=== PATIENT | female | born 1960 | race Caucasian/White ===

== ENCOUNTER 2016-04-21 07:56 | Emergency (ER) | payer MEDICARE, BC ==
[2016-04-21] MEDS ORDERED: SODIUM CHLORIDE 0.9% 1,000 ML IV STA (08:03)
[2016-04-21] MEDS ORDERED: FAMOTIDINE 20 MG/2 ML VIAL IV STA (08:03)
[2016-04-21] MEDS ORDERED: DICYCLOMINE 10 MG/ML 2 ML AMP IM STA (08:03)
[2016-04-21] MEDS ORDERED: ONDANSETRON 4 MG/2 ML VIAL IVP STA (08:03)
[2016-04-21 08:04] VITALS: PULSE 95
--- NOTE | 2016-04-21 08:05 | ED ---
General Adult HPI - General Chief complaint: Nausea/Vomiting/Diarrhea Stated complaint: Vomiting Time Seen by Provider: 04/21/16 07:57 Source: patient, EMS, RN notes reviewed Mode of arrival: EMS Limitations: no limitations - History of Present Illness Initial comments: Patient is a pleasant 5-year-old female presenting to the emergency department complaining of nausea and vomiting and diarrhea. Onset of symptoms was last night. Patient had 3 large episodes of emesis. Patient remains nauseated. Patient states her mouth feels dry. Patient states she feels weak and achy all over. Patient has also had a couple episodes of diarrhea. No abdominal pain. No fevers. Patient has been battling both pneumonia and bronchitis on and off over the past month however feels that is clearing up. - Related Data Home Medications Medication Instructions Recorded Confirmed Albuterol Inhaler [Ventolin Hfa 2 puff INHALATION RT-QID PRN 04/21/16 04/21/16 Inhaler] Albuterol Nebulized [Ventolin 2.5 mg INHALATION RT-BID PRN 04/21/16 04/21/16 Nebulized] Amitriptyline HCl [Elavil] 20 mg PO HS 04/21/16 04/21/16 DULoxetine HCL [Cymbalta] 30 mg PO BID 04/21/16 04/21/16 Doxycycline Hyclate [Vibramycin] 100 mg PO BID 04/21/16 04/21/16 Gabapentin [Neurontin] 800 mg PO 5XD 04/21/16 04/21/16 Levothyroxine Sodium [Synthroid] 100 mcg PO DAILY 04/21/16 04/21/16 Loperamide [Imodium] 2 - 4 mg PO TID PRN 04/21/16 04/21/16 Pravastatin Sodium [Pravachol] 20 mg PO HS 04/21/16 04/21/16 Triamterene-Hctz 37.5-25Mg 2 tab PO DAILY 04/21/16 04/21/16 [Maxzide 37.5-25] fentaNYL 100MCG/HR PATCH 1 patch TRANSDERM Q48H 04/21/16 04/21/16 [Duragesic 100MCG/HR] methylPREDNISolone [Medrol Dose See Taper PO DIRECTED 04/21/16 04/21/16 Pack] oxyCODONE-APAP 10-325MG [Percocet 1 tab PO Q4-6H 04/21/16 04/21/16 10-325 mg] Previous Rx's Medication Instructions Recorded Ondansetron Odt [Zofran Odt] 4 mg PO Q8HR PRN #10 tab 04/21/16 Allergies Allergy/AdvReac Type Severity Reaction Status Date / Time Sulfa (Sulfonamide Allergy Unknown Verified 04/21/16 08:08 Antibiotics) Review of Systems ROS Statement: Those systems with pertinent positive or pertinent negative responses have been documented in the HPI. ROS Other: All systems not noted in ROS Statement are negative. Constitutional: Denies: fever, chills Eyes: Denies: eye pain ENT: Denies: ear pain Respiratory: Reports: cough Cardiovascular: Denies: chest pain Endocrine: Reports: fatigue Gastrointestinal: Denies: abdominal pain Genitourinary: Denies: dysuria Musculoskeletal: Denies: back pain Skin: Denies: rash Neurological: Reports: weakness (Generalized) Past Medical History Past Medical History: Hyperlipidemia, Thyroid Disorder Additional Past Medical History / Comment(s): chronic pelvic pain History of Any Multi-Drug Resistant Organisms: None Reported Past Surgical History: Appendectomy, Hernia Repair, Hysterectomy, Tonsillectomy Additional Past Surgical History / Comment(s): pelvic surgery 2009 Past Psychological History: Depression Smoking Status: Current every day smoker Past Alcohol Use History: None Reported Past Drug Use History: None Reported General Exam Limitations: no limitations General appearance: alert, in no apparent distress Head exam: Present: atraumatic Eye exam: Present: normal appearance, PERRL ENT exam: Present: mucous membranes dry Neck exam: Present: normal inspection Respiratory exam: Present: normal lung sounds bilaterally Cardiovascular Exam: Present: regular rate, normal rhythm GI/Abdominal exam: Present: soft, normal bowel sounds. Absent: distended, tenderness, guarding, rebound, rigid, pulsatile mass Extremities exam: Present: normal inspection. Absent: pedal edema, calf tenderness Neurological exam: Present: alert Psychiatric exam: Present: normal affect, normal mood Skin exam: Absent: rash Course Vital Signs 04/21/16 07:59 Temperature 98.8 F Pulse Rate 95 Respiratory 17 Rate Blood Pressure 128/72 O2 Sat by Pulse 93 L Oximetry Medical Decision Making - Medical Decision Making Patient reexamined and resting comfortably in bed. Patient is feeling better. Patient updated on results and need for follow-up. - Lab Data Result diagrams: 04/21/16 08:05 04/21/16 08:05 Lab Results 04/21/16 04/21/16 Range/Units 08:05 08:05 WBC 10.8 H (3.8-10.6) k/uL RBC 5.10 (3.80-5.40) m/uL Hgb 15.6 (11.4-16.0) gm/dL Hct 48.3 H (34.0-46.0) % MCV 94.5 (80.0-100.0) fL MCH 30.6 (25.0-35.0) pg MCHC 32.3 (31.0-37.0) g/dL RDW 14.2 (11.5-15.5) % Plt Count 251 (150-450) k/uL Neutrophils % 89 % Lymphocytes % 7 % Monocytes % 3 % Eosinophils % 1 % Basophils % 0 % Neutrophils # 9.6 H (1.3-7.7) k/uL Lymphocytes # 0.8 L (1.0-4.8) k/uL Monocytes # 0.3 (0-1.0) k/uL Eosinophils # 0.1 (0-0.7) k/uL Basophils # 0.0 (0-0.2) k/uL Sodium 138 (137-145) mmol/L Potassium 3.3 L (3.5-5.1) mmol/L Chloride 98 (98-107) mmol/L Carbon Dioxide 28 (22-30) mmol/L Anion Gap 12 mmol/L BUN 20 H (7-17) mg/dL Creatinine 0.55 (0.52-1.04) mg/dL Est GFR (MDRD) Af Amer >60 (>60 ml/min/1.73 sqM) Est GFR (MDRD) Non-Af >60 (>60 ml/min/1.73 sqM) Glucose 124 H (74-99) mg/dL Calcium 8.4 (8.4-10.2) mg/dL Total Bilirubin 0.5 (0.2-1.3) mg/dL AST 25 (14-36) U/L ALT 40 (9-52) U/L Alkaline Phosphatase 83 (38-126) U/L Total Protein 6.4 (6.3-8.2) g/dL Albumin 3.9 (3.5-5.0) g/dL Amylase <30 L (30-110) U/L Lipase 37 (23-300) U/L - Radiology Data Radiology results: image reviewed (Chest x-ray shows no acute process) Disposition Clinical Impression: Vomiting Disposition: HOME SELF-CARE Condition: Stable Instructions: Acute Nausea and Vomiting (ED) Additional Instructions: Please follow-up with primary care physician in the next day or 2 for recheck. Return for fevers, abdominal pain, not tolerating fluids, worsening symptoms or other concerns. Prescriptions: Ondansetron Odt [Zofran Odt] 4 mg PO Q8HR PRN #10 tab PRN Reason: Nausea Referrals: Giovani Fay MD [Primary Care Provider] - 1-2 days
[2016-04-21 08:20] LABS: Basophils % (A) 0 %; CH 30.9; CHCM 32.9; Eosinophils # (A) 0.1 k/uL (0-0.7); Eosinophils % (A) 1 %; HCT 48.3 % (34.0-46.0); HDW 2.19; HGB 15.6 gm/dL (11.4-16.0); Luc # (Auto) 0.06; Luc % (Auto) 1; Lymphocytes # (A) 0.8 k/uL (1.0-4.8); Lymphocytes % (A) 7 %; MCH 30.6 pg (25.0-35.0); MCHC 32.3 g/dL (31.0-37.0); MCV 94.5 fL (80.0-100.0); Mean Platelet Volume 6.7; Monocytes # (A) 0.3 k/uL (0-1.0); Monocytes % (A) 3 %; Neutrophils # (A) 9.6 k/uL (1.3-7.7); Neutrophils % (A) 89 %; RDW 14.2 % (11.5-15.5); WBC 10.8 k/uL (3.8-10.6); WBC (Perox) 11.18
[2016-04-21 08:25] LABS: ALT 40 U/L (9-52); AST 25 U/L (14-36); Alkaline Phosphatase 83 U/L (38-126); Amylase <30 U/L (30-110); Anion Gap 12 mmol/L; Blood Urea Nitrogen 20 mg/dL (7-17); Calcium 8.4 mg/dL (8.4-10.2); Carbon Dioxide 28 mmol/L (22-30); Chloride 98 mmol/L (98-107); Glucose 124 mg/dL (74-99); Non-African American GFR(MDRD) >60 (>60 ml/min/1.73 sqM); Potassium 3.3 mmol/L (3.5-5.1); Sodium 138 mmol/L (137-145); Total Bilirubin 0.5 mg/dL (0.2-1.3); Total Protein 6.4 g/dL (6.3-8.2)
--- NOTE | 2016-04-21 08:35 | XR ---
EXAMINATION TYPE: XR chest 2V DATE OF EXAM: 04/21/2016 8:31 AM HISTORY: Nausea and vomiting. REFERENCE: NONE. FINDINGS: There is apparent elevation of the right hemidiaphragm. The lungs are clear. Pleural space are clear. The heart is not enlarged. IMPRESSION: I DO NOT SEE EVIDENCE OF ACTIVE INTRATHORACIC DISEASE.
[2016-04-21] MEDS ORDERED: ACETAMINOPHEN IV (For NPO) 1,000 MG in SALINE 1 100ML.BAG IVPB STA (08:36)
[2016-04-21] MEDS ORDERED: SODIUM CHLORIDE 0.9% 500 ML IV STA (09:12)
[2016-04-21] MEDS ORDERED: POTASSIUM CHLORIDE ER 20 MEQ TAB.ER PO STA (09:12)
[2016-04-21 10:44] VITALS: BP 146/69; RESP 18; TEMP 97.8
== END 2016-04-21 10:31 | disposition home or self-care (01) ==
LOC: EC 07:56
DX: R11.2 Nausea with vomiting, unspecified (principal); E78.5 Hyperlipidemia, unspecified; E07.9 Disorder of thyroid, unspecified; F32.9 Major depressive disorder, single episode, unspecified; F17.200 Nicotine dependence, unspecified, uncomplicated; Z79.891 Long term (current) use of opiate analgesic; Z79.899 Other long term (current) drug therapy; Z88.2 Allergy status to sulfonamides
CPT/HCPCS: 36415; 80053; 82150; 83690; 85025; 71020; 99284; 96374; 96375 ×2; 96361 ×2; 96372; J0500; J2405; J0131

== ENCOUNTER 2016-08-18 17:01 | Emergency (ER) | payer MEDICARE, BC ==
[2016-08-18 17:11] VITALS: BP 120/77; PULSE 92; RESP 18; TEMP 97.6
--- NOTE | 2016-08-18 17:27 | ED ---
Upper Extremity HPI - General Chief Complaint: Extremity Injury, Upper Stated Complaint: Fall/Wrist Pain Time Seen by Provider: 08/18/16 17:11 Source: patient, family, RN notes reviewed, old records reviewed Mode of arrival: ambulatory Limitations: no limitations - History of Present Illness Initial Comments: This is a 55-year-old female with chief complaint of right hand and wrist pain. Patient reports that at 6:00 this morning she was in her bathroom stepped backwards on a piece of clothing and fell. Patient reports she landed on her right wrist. She reports pain with flexion. She reports also pain with full extension of her fingers. She states that she is right-handed. Denies any peripheral paresthesias. Denies any previous fractures or accidents causing fractures of the right hand. Patient states that she does have some range of motion of hand and fingers, but the pain is worse with full extension. - Related Data Home Medications Medication Instructions Recorded Confirmed Albuterol Inhaler [Ventolin Hfa 2 puff INHALATION RT-QID PRN 04/21/16 04/21/16 Inhaler] Albuterol Nebulized [Ventolin 2.5 mg INHALATION RT-BID PRN 04/21/16 04/21/16 Nebulized] Amitriptyline HCl [Elavil] 20 mg PO HS 04/21/16 04/21/16 DULoxetine HCL [Cymbalta] 30 mg PO BID 04/21/16 04/21/16 Doxycycline Hyclate [Vibramycin] 100 mg PO BID 04/21/16 04/21/16 Gabapentin [Neurontin] 800 mg PO 5XD 04/21/16 04/21/16 Levothyroxine Sodium [Synthroid] 100 mcg PO DAILY 04/21/16 04/21/16 Loperamide [Imodium] 2 - 4 mg PO TID PRN 04/21/16 04/21/16 Pravastatin Sodium [Pravachol] 20 mg PO HS 04/21/16 04/21/16 Triamterene-Hctz 37.5-25Mg 2 tab PO DAILY 04/21/16 04/21/16 [Maxzide 37.5-25] fentaNYL 100MCG/HR PATCH 1 patch TRANSDERM Q48H 04/21/16 04/21/16 [Duragesic 100MCG/HR] methylPREDNISolone [Medrol Dose See Taper PO DIRECTED 04/21/16 04/21/16 Pack] oxyCODONE-APAP 10-325MG [Percocet 1 tab PO Q4-6H 04/21/16 04/21/16 10-325 mg] Previous Rx's Medication Instructions Recorded Ondansetron Odt [Zofran Odt] 4 mg PO Q8HR PRN #10 tab 04/21/16 Ibuprofen [Motrin] 600 mg PO Q6HR PRN #20 tab 08/18/16 Allergies Allergy/AdvReac Type Severity Reaction Status Date / Time Sulfa (Sulfonamide Allergy Unknown Verified 08/18/16 17:07 Antibiotics) Review of Systems ROS Statement: Those systems with pertinent positive or pertinent negative responses have been documented in the HPI. ROS Other: All systems not noted in ROS Statement are negative. Past Medical History Past Medical History: Hyperlipidemia, Thyroid Disorder Additional Past Medical History / Comment(s): chronic pelvic pain History of Any Multi-Drug Resistant Organisms: None Reported Past Surgical History: Appendectomy, Hernia Repair, Hysterectomy, Tonsillectomy Additional Past Surgical History / Comment(s): pelvic surgery 2009 Past Psychological History: Depression Smoking Status: Current every day smoker Past Alcohol Use History: None Reported Past Drug Use History: None Reported General Exam Limitations: no limitations General appearance: alert, in no apparent distress Head exam: Present: atraumatic, normocephalic, normal inspection Eye exam: Present: normal appearance, PERRL, EOMI. Absent: scleral icterus, conjunctival injection, periorbital swelling ENT exam: Present: normal exam, mucous membranes moist Neck exam: Present: normal inspection. Absent: tenderness, meningismus, lymphadenopathy Respiratory exam: Present: normal lung sounds bilaterally. Absent: respiratory distress, wheezes, rales, rhonchi, stridor Cardiovascular Exam: Present: regular rate, normal rhythm, normal heart sounds. Absent: systolic murmur, diastolic murmur, rubs, gallop, clicks GI/Abdominal exam: Present: soft, normal bowel sounds. Absent: distended, tenderness, guarding, rebound, rigid Extremities exam: Present: normal inspection, full ROM, normal capillary refill. Absent: tenderness, pedal edema, joint swelling, calf tenderness Right Shoulder Exam: Present: normal inspection, full ROM Upper Arm exam: Present: normal inspection, full ROM Elbow exam: Present: normal inspection, full ROM Forearm Wrist exam: Present: normal inspection. Absent: full ROM (Patient reports pain with full extension of the wrist.) Hand Wrist exam: Present: normal inspection, full ROM Neuro motor exam: Present: wrist extension intact, thumb opposition intact, thumb IP flexion intact, thumb adduction intact, fingers 2-5 abduction intact Vascular: Present: normal capillary refill Back exam: Present: normal inspection Neurological exam: Present: alert, oriented X3, CN II-XII intact Psychiatric exam: Present: normal affect, normal mood Skin exam: Present: warm, dry, intact, normal color. Absent: rash Course Vital Signs 08/18/16 17:07 Temperature 97.6 F Pulse Rate 92 Respiratory 18 Rate Blood Pressure 120/77 O2 Sat by Pulse 96 Oximetry Procedures - Orthopedic Splinting/Casting Injury #1 Side: right Upper Extremity Injury Location: wrist Upper Extremity Immobilizer: volar splint Medical Decision Making - Medical Decision Making This is a 55-year-old female with chief complaint of right hand and wrist pain. Patient reports that at 6:00 this morning she was in her bathroom stepped backwards on a piece of clothing and fell. Patient reports she landed on her right wrist. She reports pain with flexion. She reports also pain with full extension of her fingers. She states that she is right-handed. Denies any peripheral paresthesias. Xray negative for fracture. Patient placed in volar splint for support of the wrist.. Patient given Rx for antiinflammatory medication. REferral to orthopedic. Understands treatment plan and will comply. - Radiology Data Radiology results: report reviewed X-rays are reviewed and negative for any acute process. Disposition Clinical Impression: Wrist sprain Disposition: HOME SELF-CARE Condition: Good Instructions: Wrist Sprain (ED) Additional Instructions: Patient is to rest, ice, elevate extremity. Take a temperature medicine such as Motrin. Follow-up with your primary care provider within the next 2-3 days if symptoms continue persist. Patient also welcome to follow-up with orthopedic physician. Return to the emergency department if any alarming signs or symptoms occur. Prescriptions: Ibuprofen [Motrin] 600 mg PO Q6HR PRN #20 tab PRN Reason: Pain Referrals: Giovani Fay MD [Primary Care Provider] - 1-2 days Dixon Sanchez MD [STAFF PHYSICIAN] - 1-2 days Time of Disposition: 17:56
--- NOTE | 2016-08-18 17:45 | XR ---
EXAMINATION TYPE: XR hand complete RT, XR wrist complete RT DATE OF EXAM: 08/18/2016 CLINICAL HISTORY: pain TECHNIQUE: Frontal, lateral and oblique images of the right hand are obtained. COMPARISON: None. FINDINGS: There is no acute fracture/dislocation evident. The joint spaces appear within normal limi ts. The overlying soft tissue appears unremarkable. IMPRESSION: There is no acute fracture or dislocation ICD 10 NO FRACTURE, INITIAL EVALUATION EXAMINATION TYPE: XR hand complete RT, XR wrist complete RT DATE OF EXAM: 08/18/2016 CLINICAL HISTORY: pain TECHNIQUE: Frontal, lateral and oblique images of the right wrist are obtained. COMPARISON: None. FINDINGS: There is no acute fracture/dislocation evident. The joint spaces appear within normal limits. The o verlying soft tissue appears unremarkable. IMPRESSION: There is no acute fracture or dislocation seen. ICD 10 NO FRACTURE, INITIAL EVALUATION
== END 2016-08-18 18:12 | disposition home or self-care (01) ==
LOC: EC 17:01
DX: S63.501A Unspecified sprain of right wrist, initial encounter (principal); E78.5 Hyperlipidemia, unspecified; E07.9 Disorder of thyroid, unspecified; F32.9 Major depressive disorder, single episode, unspecified; F17.200 Nicotine dependence, unspecified, uncomplicated; Z79.52 Long term (current) use of systemic steroids; Z79.899 Other long term (current) drug therapy; Z88.2 Allergy status to sulfonamides; W01.0XXA Fall on same level from slipping, tripping and stumbling without subsequent striking against object, initial encounter; Y92.002 Bathroom of unspecified non-institutional (private) residence as the place of occurrence of the external cause
CPT/HCPCS: 29125; 99284

== ENCOUNTER 2017-09-05 09:02 | Day surgery (SDC) | payer MEDICARE, BC ==
[2017-09-02 09:36] VITALS: BMI 29.2
[2017-09-05 09:25] VITALS: TEMP 97
[2017-09-05] MEDS: LACTATED RINGERS 1,000 ML IV SCH ×2 (09:34→09:59)
[2017-09-05] MEDS ORDERED: LIDOCAINE 1% 20 ML VIAL (10MG/ML) FOR IV START INTRADERMA ONE (09:34)
[2017-09-05] MEDS ORDERED: PROPOFOL 10 MG/ML 20 ML VIAL IV ONE (10:05)
[2017-09-05 10:50] VITALS: BP 1119/72; PULSE 70; RESP 18
--- NOTE | 2017-09-05 11:12 | P.PCN ---
Date of Procedure: 09/05/17 Procedure(s) Performed: Procedure: Colonoscopy and biopsy. Preoperative diagnosis: Change in bowel habits. Postoperative diagnosis: 1. Normal colon and terminal ileum. 2. Biopsies obtained from the terminal ileum and right colon. Preparation: HalfLytely prep. Sedation: Was provided by anesthesia. Brief clinical history: The patient is a 57-year-old female who is scheduled for this evaluation because of change in bowel habits with more recent onset of diarrhea with multiple bowel movements every morning. She had had a prior colonoscopy in 2009. Procedure: With the patient on her left lateral decubitus position and after informed consent and adequate sedation, the perianal area was inspected and it did not show any fissures or fistulas. There were no masses felt on digital rectal examination. The Olympus CFQ 160L video colonoscope was then inserted in the rectum in the usual fashion and advanced to the cecum. I intubated the ileocecal valve and examined the terminal ileum. Terminal ileum and colon appeared healthy with no edema, erythema, friability, ulceration, exudation or spontaneous bleeding. No obvious diverticular disease or other pathology. I obtained biopsies from the terminal ileum and right colon. I retroflexed the endoscope in the rectum before the endoscope was withdrawn. The patient tolerated the procedure well. Plan: The patient was reassured. Will await biopsy results. She will follow- up with you as planned and further plans can be made based on her course. I recommended repeat colonoscopy in 10 years.
== END 2017-09-05 11:23 | disposition home or self-care (01) ==
LOC: ORWHC2ENDO 09:02
DX: R19.4 Change in bowel habit (principal); R19.7 Diarrhea, unspecified; R10.9 Unspecified abdominal pain; R10.2 Pelvic and perineal pain; G89.29 Other chronic pain; E78.5 Hyperlipidemia, unspecified; I10 Essential (primary) hypertension; E07.9 Disorder of thyroid, unspecified; F39 Unspecified mood [affective] disorder; Z72.0 Tobacco use; Z79.890 Hormone replacement therapy; Z79.891 Long term (current) use of opiate analgesic; Z79.899 Other long term (current) drug therapy; Z88.2 Allergy status to sulfonamides
CPT/HCPCS: 88305; 84132; 45380; J2704

== ENCOUNTER → 2017-12-07 | Outpatient (CLI) | payer MEDICARE, BC ==
--- NOTE | 2017-12-08 15:13 | MM ---
Reason for exam: screening (asymptomatic). Last mammogram was performed 5 years and 1 month ago. History: Patient is postmenopausal. Physical Findings: A clinical breast exam by your physician is recommended on an annual basis and results should be correlated with mammographic findings. MG 3D Screening Mammo W/Cad Bilateral CC and MLO view(s) were taken. Prior study comparison: November 16, 2012, bilateral digital screening mammo w/CAD. September 17, 2010, bilateral digital screening mammo w/CAD. There are scattered fibroglandular densities. There is no discrete abnormality. No significant changes when compared with prior studies. ASSESSMENT: Negative, BI-RAD 1 RECOMMENDATION: Routine screening mammogram of both breasts in 1 year.
== END | disposition home or self-care (01) ==
LOC: RADMAMWWP 13:08
PROVIDERS: ATTEND Family Medicine
DX: Z12.31 Encounter for screening mammogram for malignant neoplasm of breast (principal)
CPT/HCPCS: 77063; 77067

== ENCOUNTER → 2018-02-13 | Outpatient (CLI) | payer MEDICARE, BC ==
--- NOTE | 2018-02-14 00:14 | CT ---
EXAMINATION TYPE: CT abdomen pelvis wo/w con DATE OF EXAM: 02/13/2018 COMPARISON: NONE HISTORY: 57-year-old female unspecified abdominal pain. Hx IBS, pelvic pain TECHNIQUE: Contiguous axial scanning of the abdomen and pelvis before and following administration of 100 ml Isovue 300 IV contrast. Delayed images through the kidneys and coronal/sagittal reconstructi ons performed. CT DLP: 1957 mGycm Automated exposure control for dose reduction was used. FINDINGS: Heart normal size without pericardial effusion. Lung bases clear without pleural effusion. Small hiatal hernia. Liver mildly enlarged at 18.7 cm. Small amount of focal fat along the anterior falciform ligament. Ot herwise, no focal liver lesion. Portal venous system is patent. No biliary ductal dilatation. Gallbladder, adrenal glands, left kidney, spleen, and pancreas show no gross abnormality. 2.1 cm benign cysts posterior upper pole right kidney and too small to characterize round 8 mm hypode nsity lower pole right kidney also likely a cyst. No dilated small bowel, free fluid, or free air. Tiny fatty umbilical hernia. Scattered nonenlarged mid abdominal mesenteric lymph nodes, nonspecific. Suggestion of some focal soft tissue fullness in the region of the cecum just below the level of the ileocecal valve, refer to axial image 70 on the noncontrast and postcontrast series. There is moderat e stool burden without pericolonic inflammatory change. Bladder is urine distended. Uterus surgically absent. Neither ovary is clearly seen. No abnormal flui d collection in the pelvis or pelvic lymphadenopathy. There is a posterior left-sided generator device with lead extending into the left pelvic floor. Bones: Degenerative changes at the hips, moderate on the right. Additional degenerative changes throu ghout the lumbar spine with moderate to advanced degenerative disc disease and hypertrophic facet art hropathy. IMPRESSION: 1. FOCAL SOFT TISSUE FULLNESS IN THE REGION OF THE CECUM JUST BELOW THE ILEOCECAL VALVE, AXIAL IMAGE 70. FINDINGS MAY REPRESENT CLUMPED UP STOOL. DIRECT VISUALIZATION TO EXCLUDE UNDERLYING NEOPLASM IF THE PATIENT IS OVER DUE FOR SCREENING COLONOSCOPY. 2. MILD HEPATOMEGALY (18.7 CM), SMALL HIATAL HERNIA, AN TINY FATTY UMBILICAL HERNIA. 3. MODERATE STOOL BURDEN. 4. LEFT POSTERIOR GENERATOR DEVICE. SINGLE STIMULATOR LEAD TRAVERSES THE LEFT PELVIC FLOOR MUSCULATUR E AND TERMINATES NEAR THE LEFT INTERNAL ILIAC CHAIN.
== END | disposition home or self-care (01) ==
LOC: RADCTMAIN 14:20
PROVIDERS: ATTEND Family Medicine
DX: K42.9 Umbilical hernia without obstruction or gangrene (principal); K44.9 Diaphragmatic hernia without obstruction or gangrene; R16.0 Hepatomegaly, not elsewhere classified; M79.89 Other specified soft tissue disorders
CPT/HCPCS: 74178; Q9967

== ENCOUNTER → 2018-11-24 | Outpatient (CLI) | payer MEDICARE, BC ==
--- NOTE | 2018-11-24 15:44 | US ---
EXAMINATION TYPE: US pelvic complete DATE OF EXAM: 11/24/2018 COMPARISON: CT 2018 CLINICAL HISTORY: N81.10 Cystocele, unspecified. Patient states total hysterectomy. Difficulty urinat ing. TECHNIQUE: Transabdominal (TA). Transabdominal sonographic images of the pelvis were acquired. Tra nsvaginal sonographic images were medically necessary to better assess the following anatomy: Date of LMP: "years ago" EXAM MEASUREMENTS: Uterus: Surgically absent cm Endometrial Stripe: Surgically absent cm Right Ovary: Surgically absent cm Left Ovary: Surgically absent cm 1. Uterus: Surgically absent 2. Endometrium: Surgically absent 3. Right Ovary: Surgically absent 4. Left Ovary: Surgically absent Spectral, color and waveform doppler imaging shows good arterial and venous flow within the ovaries ; there is no evidence for ovarian torsion. 5. Bilateral Adnexa: wnl 6. Posterior cul-de-sac: wnl normal post void bladder volume =21.3 ml IMPRESSION: Uterus and ovaries are surgically absent. Post void residual is within normal limits with in the urinary bladder. No sonographic evidence of neurogenic bladder.
== END | disposition home or self-care (01) ==
LOC: RADUSWWP 14:56
PROVIDERS: ATTEND Family Medicine
DX: N81.10 Cystocele, unspecified (principal); Z90.710 Acquired absence of both cervix and uterus; Z90.722 Acquired absence of ovaries, bilateral
CPT/HCPCS: 76856

== ENCOUNTER → 2021-07-31 | Outpatient (CLI) | payer MEDICARE, BC ==
--- NOTE | 2021-08-04 12:49 | MM ---
Reason for Exam: Screening (asymptomatic). Last mammogram was performed 3 year(s) and 8 month(s) ago. Patient History: Menarche at age 13. First Full-Term at age 23. Left ovary removed at age 42. Right ovary removed at age 42. Hysterectomy at age 42. Postmenopausal. Film Views: Bilateral CC views were taken. Bilateral MLO views were taken. Prior Study Comparison: 12/07/2017 Bilateral Screening Mammogram, [facility]. Tissue Density: There are scattered fibroglandular densities. Findings: Analyzed By CAD. No significant changes when compared with prior studies. Chronic nodularity in the left breast. Overall Assessment: Benign, BI-RAD 2 Management: Screening Mammogram of both breasts in 1 year.
== END | disposition home or self-care (01) ==
LOC: RADMAMWWP 11:13
PROVIDERS: ATTEND Family Medicine
DX: Z12.31 Encounter for screening mammogram for malignant neoplasm of breast (principal); Z78.0 Asymptomatic menopausal state; Z90.721 Acquired absence of ovaries, unilateral
CPT/HCPCS: 77067

== ENCOUNTER 2021-11-02 16:35 | Inpatient (IN) | payer MEDICARE, BC ==
--- NOTE | 2021-11-02 16:55 | ED ---
General Adult HPI - General Chief complaint: Psychiatric Symptoms Stated complaint: Overdose Time Seen by Provider: 11/02/21 16:41 Source: patient, police, EMS, RN notes reviewed Mode of arrival: EMS Limitations: altered mental status - History of Present Illness Initial comments: Patient is a 61-year-old female presenting to the emergency department with overdose. Patient provides very little history. Patient admits to taking too much of her prescription medication. Patient also admits to having depression and thoughts of self-harm. Patient admits to drinking alcohol. Unclear patient has history of similar symptoms previously. Family does arrive and is unclear which medications patient took. Patient reportedly had an empty bottle of Cymb berna near her - Related Data Home Medications Medication Instructions Recorded Confirmed Gabapentin [Neurontin] 800 mg PO QID 04/21/16 11/05/21 Levothyroxine Sodium [Synthroid] 100 mcg PO DAILY 04/21/16 11/05/21 fentaNYL 100MCG/HR PATCH 1 patch TRANSDERM Q48H 04/21/16 11/05/21 [Duragesic 100MCG/HR] oxyCODONE-APAP 10-325MG [Percocet 2 tab PO Q8H 04/21/16 11/05/21 10-325 mg] DULoxetine HCL [Cymbalta] 60 mg PO BID 09/02/17 11/05/21 diazePAM [Valium] 10 mg PO BID 09/02/17 11/05/21 Diphenoxylate HCl/Atropine 1 tab PO Q4H PRN 11/03/21 11/05/21 [Lomotil 2.5-0.025 mg Tablet] Furosemide [Lasix] 40 mg PO DAILY 11/03/21 11/05/21 Pravastatin Sodium [Pravachol] 40 mg PO HS 11/03/21 11/05/21 Allergies Allergy/AdvReac Type Severity Reaction Status Date / Time Sulfa (Sulfonamide Allergy Unknown Verified 11/05/21 10:56 Antibiotics) Review of Systems ROS Statement: Those systems with pertinent positive or pertinent negative responses have been documented in the HPI. ROS Other: All systems not noted in ROS Statement are negative. Constitutional: Denies: fever Eyes: Denies: eye pain ENT: Denies: ear pain Respiratory: Denies: cough Cardiovascular: Denies: chest pain Endocrine: Denies: fatigue Gastrointestinal: Denies: abdominal pain Genitourinary: Denies: dysuria Musculoskeletal: Denies: back pain Skin: Denies: rash Neurological: Denies: weakness Psychiatric: Reports: as per HPI, depression, suicidal thoughts Past Medical History Past Medical History: Hyperlipidemia, Thyroid Disorder Additional Past Medical History / Comment(s): CHRONIC PELVIC PAIN -HX OF SURGERY WITH TUMOR REMOVED., HAS INTERSTIM IMPLANTED DEVICE IN LEFT BUTTOCKS FOR HER PELVIC PAIN., UNABLE TO WALK LONG DISTANCES., STATES HAVING DIARRHEA. History of Any Multi-Drug Resistant Organisms: None Reported Past Surgical History: Appendectomy, Hernia Repair, Hysterectomy, Tonsillectomy Additional Past Surgical History / Comment(s): pelvic surgery 2009, INTERSTIM IMPLANTED DEVICE LEFT BUTTOCKS([employer]) Past Anesthesia/Blood Transfusion Reactions: No Reported Reaction Past Psychological History: Anxiety, Depression Past Alcohol Use History: None Reported Past Drug Use History: None Reported - Past Family History Mother Family Medical History: No Reported History General Exam Limitations: altered mental status General appearance: alert, in no apparent distress, appears intoxicated Head exam: Present: normocephalic Eye exam: Present: normal appearance, PERRL ENT exam: Present: normal oropharynx Neck exam: Present: normal inspection Respiratory exam: Present: normal lung sounds bilaterally Cardiovascular Exam: Present: regular rate, normal rhythm GI/Abdominal exam: Present: soft. Absent: tenderness Extremities exam: Present: normal inspection Neurological exam: Present: alert. Absent: motor sensory deficit Psychiatric exam: Present: depressed Skin exam: Present: normal color Course Vital Signs 11/02/21 11/02/21 11/02/21 16:36 17:38 18:44 Temperature 97.3 F L Pulse Rate 78 69 69 Respiratory 14 12 12 Rate Blood Pressure 145/83 153/78 146/69 O2 Sat by Pulse 91 L 99 99 Oximetry 11/02/21 11/03/21 11/03/21 21:04 00:14 01:08 Temperature Pulse Rate 73 73 75 Respiratory 20 12 12 Rate Blood Pressure 134/67 120/64 137/64 O2 Sat by Pulse 94 L 94 L 99 Oximetry - Reevaluation(s) Reevaluation #1: 11/02/21 20:23 Repeat EKG shows sinus rhythm at 75. MI 197. QRS 83. QT 373. QTC 411. Normal axis. Normal QRS. No acute ST change. Artifact present. 11/02/21 22:30 Patient reevaluated. Patient slightly drowsy but arousable to voice. Patient is oriented 3. Patient is medically stable for psychiatric eval EKG Findings - EKG Comments: EKG Findings:: Sinus rhythm 74. Motion artifact present. MI 187. QRS 90. QT or 1. QTC 49. Normal axis. Normal QRS. No acute ST change. Medical Decision Making - Lab Data Result diagrams: 11/05/21 10:01 11/05/21 10:01 Lab Results 11/02/21 11/02/21 11/02/21 Range/Units 17:03 17:30 17:30 WBC 7.3 (3.8-10.6) k/uL RBC 4.93 (3.80-5.40) m/uL Hgb 15.4 (11.4-16.0) gm/dL Hct 48.2 H (34.0-46.0) % MCV 97.8 (80.0-100.0) fL MCH 31.3 (25.0-35.0) pg MCHC 32.1 (31.0-37.0) g/dL RDW 13.6 (11.5-15.5) % Plt Count 102 L (150-450) k/uL MPV 8.4 Neutrophils % 74 % Lymphocytes % 17 % Monocytes % 6 % Eosinophils % 0 % Basophils % 0 % Neutrophils # 5.4 (1.3-7.7) k/uL Lymphocytes # 1.3 (1.0-4.8) k/uL Monocytes # 0.5 (0-1.0) k/uL Eosinophils # 0.0 (0-0.7) k/uL Basophils # 0.0 (0-0.2) k/uL PT 10.9 (9.0-12.0) sec INR 1.0 (<1.2) APTT 22.0 (22.0-30.0) sec Sodium (137-145) mmol/L Potassium (3.5-5.1) mmol/L Chloride (98-107) mmol/L Carbon Dioxide (22-30) mmol/L Anion Gap mmol/L BUN (7-17) mg/dL Creatinine (0.52-1.04) mg/dL Est GFR (CKD-EPI)AfAm (>60 ml/min/1.73 sqM) Est GFR (CKD-EPI)NonAf (>60 ml/min/1.73 sqM) Glucose (74-99) mg/dL Estimated Ave Glu mg/dL Hemoglobin A1c (0.0-6.0) % Calcium (8.4-10.2) mg/dL Total Bilirubin (0.2-1.3) mg/dL AST (14-36) U/L ALT (4-34) U/L Alkaline Phosphatase (38-126) U/L Creatine Kinase (30-135) U/L Total Protein (6.3-8.2) g/dL Albumin (3.5-5.0) g/dL TSH (0.465-4.680) mIU/L Salicylates mg/dL Urine Opiates Screen Not Detected (NotDetected) Ur Oxycodone Screen Not Detected (NotDetected) Urine Methadone Screen Not Detected (NotDetected) Ur Propoxyphene Screen Not Detected (NotDetected) Acetaminophen ug/mL Ur Barbiturates Screen Not Detected (NotDetected) U Tricyclic Antidepress Not Detected (NotDetected) Ur Phencyclidine Scrn Not Detected (NotDetected) Ur Amphetamines Screen Not Detected (NotDetected) U Methamphetamines Scrn Not Detected (NotDetected) U Benzodiazepines Scrn Detected H (NotDetected) Urine Cocaine Screen Not Detected (NotDetected) U Marijuana (THC) Screen Not Detected (NotDetected) Serum Alcohol mg/dL Coronavirus (PCR) (Not Detectd) 11/02/21 11/02/21 11/02/21 Range/Units 17:30 17:30 17:30 WBC (3.8-10.6) k/uL RBC (3.80-5.40) m/uL Hgb (11.4-16.0) gm/dL Hct (34.0-46.0) % MCV (80.0-100.0) fL MCH (25.0-35.0) pg MCHC (31.0-37.0) g/dL RDW (11.5-15.5) % Plt Count (150-450) k/uL MPV Neutrophils % % Lymphocytes % % Monocytes % % Eosinophils % % Basophils % % Neutrophils # (1.3-7.7) k/uL Lymphocytes # (1.0-4.8) k/uL Monocytes # (0-1.0) k/uL Eosinophils # (0-0.7) k/uL Basophils # (0-0.2) k/uL PT (9.0-12.0) sec INR (<1.2) APTT (22.0-30.0) sec Sodium 140 (137-145) mmol/L Potassium 3.9 (3.5-5.1) mmol/L Chloride 97 L (98-107) mmol/L Carbon Dioxide 33 H (22-30) mmol/L Anion Gap 10 mmol/L BUN 11 (7-17) mg/dL Creatinine 0.47 L (0.52-1.04) mg/dL Est GFR (CKD-EPI)AfAm >90 (>60 ml/min/1.73 sqM) Est GFR (CKD-EPI)NonAf >90 (>60 ml/min/1.73 sqM) Glucose 87 (74-99) mg/dL Estimated Ave Glu mg/dL 124 Hemoglobin A1c 6.0 (0.0-6.0) % Calcium 9.7 (8.4-10.2) mg/dL Total Bilirubin 0.4 (0.2-1.3) mg/dL AST 31 (14-36) U/L ALT 15 (4-34) U/L Alkaline Phosphatase 74 (38-126) U/L Creatine Kinase 302 H (30-135) U/L Total Protein 7.0 (6.3-8.2) g/dL Albumin 4.5 (3.5-5.0) g/dL TSH 0.291 L (0.465-4.680) mIU/L Salicylates <1.0 mg/dL Urine Opiates Screen (NotDetected) Ur Oxycodone Screen (NotDetected) Urine Methadone Screen (NotDetected) Ur Propoxyphene Screen (NotDetected) Acetaminophen <10.0 ug/mL Ur Barbiturates Screen (NotDetected) U Tricyclic Antidepress (NotDetected) Ur Phencyclidine Scrn (NotDetected) Ur Amphetamines Screen (NotDetected) U Methamphetamines Scrn (NotDetected) U Benzodiazepines Scrn (NotDetected) Urine Cocaine Screen (NotDetected) U Marijuana (THC) Screen (NotDetected) Serum Alcohol <10 mg/dL Coronavirus (PCR) (Not Detectd) 11/02/21 11/03/21 Range/Units 21:00 04:54 WBC (3.8-10.6) k/uL RBC (3.80-5.40) m/uL Hgb (11.4-16.0) gm/dL Hct (34.0-46.0) % MCV (80.0-100.0) fL MCH (25.0-35.0) pg MCHC (31.0-37.0) g/dL RDW (11.5-15.5) % Plt Count (150-450) k/uL MPV Neutrophils % % Lymphocytes % % Monocytes % % Eosinophils % % Basophils % % Neutrophils # (1.3-7.7) k/uL Lymphocytes # (1.0-4.8) k/uL Monocytes # (0-1.0) k/uL Eosinophils # (0-0.7) k/uL Basophils # (0-0.2) k/uL PT (9.0-12.0) sec INR (<1.2) APTT (22.0-30.0) sec Sodium (137-145) mmol/L Potassium (3.5-5.1) mmol/L Chloride (98-107) mmol/L Carbon Dioxide (22-30) mmol/L Anion Gap mmol/L BUN (7-17) mg/dL Creatinine (0.52-1.04) mg/dL Est GFR (CKD-EPI)AfAm (>60 ml/min/1.73 sqM) Est GFR (CKD-EPI)NonAf (>60 ml/min/1.73 sqM) Glucose (74-99) mg/dL Estimated Ave Glu mg/dL Hemoglobin A1c (0.0-6.0) % Calcium (8.4-10.2) mg/dL Total Bilirubin (0.2-1.3) mg/dL AST (14-36) U/L ALT (4-34) U/L Alkaline Phosphatase (38-126) U/L Creatine Kinase (30-135) U/L Total Protein (6.3-8.2) g/dL Albumin (3.5-5.0) g/dL TSH (0.465-4.680) mIU/L Salicylates mg/dL Urine Opiates Screen (NotDetected) Ur Oxycodone Screen (NotDetected) Urine Methadone Screen (NotDetected) Ur Propoxyphene Screen (NotDetected) Acetaminophen <10.0 ug/mL Ur Barbiturates Screen (NotDetected) U Tricyclic Antidepress (NotDetected) Ur Phencyclidine Scrn (NotDetected) Ur Amphetamines Screen (NotDetected) U Methamphetamines Scrn (NotDetected) U Benzodiazepines Scrn (NotDetected) Urine Cocaine Screen (NotDetected) U Marijuana (THC) Screen (NotDetected) Serum Alcohol mg/dL Coronavirus (PCR) Not Detected (Not Detectd) Disposition Clinical Impression: Overdose Disposition: TRANSFER TO PSYCH HOSP/UNIT Condition: Stable Is patient prescribed a controlled substance at d/c from ED?: No
[2021-11-02 17:19] LABS: Amphetamine Screen,Urine Not Detected (NotDetected); Barbiturate Screen,Urine Not Detected (NotDetected); Benzodiazepines Screen,Urine Detected (NotDetected); Cocaine Screen,Urine Not Detected (NotDetected); Methadone Screen, Urine Not Detected (NotDetected); Opiate Screen,Urine Not Detected (NotDetected); Oxycodone Screen, Urine Not Detected (NotDetected); Phencyclidine Screen,Urine Not Detected (NotDetected); Tricyclic Antidepressant,Urine Not Detected (NotDetected); Urn Cannabinoid Scrn Not Detected (NotDetected)
[2021-11-02 17:49] LABS: ALT 15 U/L (4-34); AST 31 U/L (14-36); Acetaminophen <10.0 ug/mL; African American GFR (CKD) >90 (>60 ml/min/1.73 sqM); Albumin 4.5 g/dL (3.5-5.0); Alcohol <10 mg/dL; Alkaline Phosphatase 74 U/L (38-126); Anion Gap 10 mmol/L; Blood Urea Nitrogen 11 mg/dL (7-17); Calcium 9.7 mg/dL (8.4-10.2); Carbon Dioxide 33 mmol/L (22-30); Chloride 97 mmol/L (98-107); Creatine Kinase 302 U/L (30-135); Glucose 87 mg/dL (74-99); Non-African American GFR(CKD) >90 (>60 ml/min/1.73 sqM); Potassium 3.9 mmol/L (3.5-5.1); Salicylate <1.0 mg/dL; Sodium 140 mmol/L (137-145); Total Bilirubin 0.4 mg/dL (0.2-1.3)
[2021-11-02 17:54] LABS: Prothrombin Time 10.9 sec (9.0-12.0)
[2021-11-02 17:55] LABS: Basophils % (A) 0 %; Eosinophils % (A) 0 %; HCT 48.2 % (34.0-46.0); HGB 15.4 gm/dL (11.4-16.0); Lymphocytes # (A) 1.3 k/uL (1.0-4.8); Lymphocytes % (A) 17 %; MCH 31.3 pg (25.0-35.0); MCHC 32.1 g/dL (31.0-37.0); MCV 97.8 fL (80.0-100.0); Mean Platelet Volume 8.4; Monocytes # (A) 0.5 k/uL (0-1.0); Monocytes % (A) 6 %; Neutrophils # (A) 5.4 k/uL (1.3-7.7); Neutrophils % (A) 74 %; Platelet Count 102 k/uL (150-450); RBC 4.93 m/uL (3.80-5.40); RDW 13.6 % (11.5-15.5); WBC 7.3 k/uL (3.8-10.6)
--- NOTE | 2021-11-02 17:58 | XR ---
EXAMINATION TYPE: XR chest 1V portable DATE OF EXAM: 11/02/2021 COMPARISON: 04/21/2016 HISTORY: Overdose TECHNIQUE: Single view FINDINGS: There is coarsening of the lung markings. Heart size is normal. There is no pleural effusio n. Lungs are clear of consolidation. IMPRESSION: There is some mild pulmonary interstitial infiltrate compared to old exam. Normal heart.
[2021-11-03] MEDS ORDERED: HALOPERIDOL LACTATE 5 MG/ML 1 ML VIAL IM PRN (07:02)
[2021-11-03] MEDS ORDERED: MAGNESIUM HYDROXIDE 2,400 MG/10 ML CUP PO PRN (07:02)
[2021-11-03] MEDS ORDERED: MAG HYDROX/AL HYDROX/SIMETH 30 ML CUP PO PRN (07:02)
[2021-11-03] MEDS ORDERED: LORazepam 1 MG TAB PO PRN (07:02)
[2021-11-03] MEDS ORDERED: LORazepam 2 MG/ML INJ IM PRN (07:05)
[2021-11-03] MEDS ORDERED: haloperidoL 5 MG TAB PO PRN (07:07)
[2021-11-03] MEDS ORDERED: FUROSEMIDE 40 MG TAB PO SCH (09:00)
[2021-11-03] MEDS ORDERED: PRAVASTATIN SODIUM 40 MG TAB PO SCH (09:00)
[2021-11-03] MEDS: NICOTINE 14MG/24HR PATCH TRANSDERM SCH (09:45)
[2021-11-03] MEDS ORDERED: DIPHENOX-ATROP 2.5-0.025 MG 1 EACH TAB PO PRN (11:24)
--- NOTE | 2021-11-03 11:35 | P.HP ---
Psychiatric H&P - . H&P Date: 11/03/21 History & Physical: Allergies Allergy/AdvReac Type Severity Reaction Status Date / Time Sulfa (Sulfonamide Allergy Unknown Verified 11/02/21 19:24 Antibiotics) Vital Signs Temp 97.9 F 11/03/21 09:40 Pulse 76 11/03/21 09:40 Resp 18 11/03/21 09:40 BP 160/77 11/03/21 09:40 Pulse Ox 99 11/03/21 01:08 FiO2 Intake & Output 11/02/21 11/03/21 11/03/21 18:59 06:59 18:59 Weight 86.183 kg Laboratory Last Values WBC 7.3 k/uL (3.8-10.6) 11/02/21 17:30 RBC 4.93 m/uL (3.80-5.40) 11/02/21 17:30 Hgb 15.4 gm/dL (11.4-16.0) 11/02/21 17:30 Hct 48.2 % (34.0-46.0) H 11/02/21 17:30 MCV 97.8 fL (80.0-100.0) 11/02/21 17:30 MCH 31.3 pg (25.0-35.0) 11/02/21 17:30 MCHC 32.1 g/dL (31.0-37.0) 11/02/21 17:30 RDW 13.6 % (11.5-15.5) 11/02/21 17:30 Plt Count 102 k/uL (150-450) L 11/02/21 17:30 MPV 8.4 11/02/21 17:30 Neutrophils % 74 % 11/02/21 17:30 Lymphocytes % 17 % 11/02/21 17:30 Monocytes % 6 % 11/02/21 17:30 Eosinophils % 0 % 11/02/21 17:30 Basophils % 0 % 11/02/21 17:30 Neutrophils # 5.4 k/uL (1.3-7.7) 11/02/21 17:30 Lymphocytes # 1.3 k/uL (1.0-4.8) 11/02/21 17:30 Monocytes # 0.5 k/uL (0-1.0) 11/02/21 17:30 Eosinophils # 0.0 k/uL (0-0.7) 11/02/21 17:30 Basophils # 0.0 k/uL (0-0.2) 11/02/21 17:30 PT 10.9 sec (9.0-12.0) 11/02/21 17:30 INR 1.0 (<1.2) 11/02/21 17:30 APTT 22.0 sec (22.0-30.0) 11/02/21 17:30 Sodium 140 mmol/L (137-145) 11/02/21 17:30 Potassium 3.9 mmol/L (3.5-5.1) 11/02/21 17:30 Chloride 97 mmol/L (98-107) L 11/02/21 17:30 Carbon Dioxide 33 mmol/L (22-30) H 11/02/21 17:30 Anion Gap 10 mmol/L 11/02/21 17:30 BUN 11 mg/dL (7-17) 11/02/21 17:30 Creatinine 0.47 mg/dL (0.52-1.04) L 11/02/21 17:30 Est GFR (CKD-EPI)AfAm >90 (>60 ml/min/1.73 sqM) 11/02/21 17:30 Est GFR (CKD-EPI)NonAf >90 (>60 ml/min/1.73 sqM) 11/02/21 17:30 Glucose 87 mg/dL (74-99) 11/02/21 17:30 Calcium 9.7 mg/dL (8.4-10.2) 11/02/21 17:30 Total Bilirubin 0.4 mg/dL (0.2-1.3) 11/02/21 17:30 AST 31 U/L (14-36) 11/02/21 17:30 ALT 15 U/L (4-34) 11/02/21 17:30 Alkaline Phosphatase 74 U/L (38-126) 11/02/21 17:30 Creatine Kinase 302 U/L (30-135) H 11/02/21 17:30 Total Protein 7.0 g/dL (6.3-8.2) 11/02/21 17:30 Albumin 4.5 g/dL (3.5-5.0) 11/02/21 17:30 Salicylates <1.0 mg/dL 11/02/21 17:30 Urine Opiates Screen Not Detected (NotDetected) 11/02/21 17:03 Ur Oxycodone Screen Not Detected (NotDetected) 11/02/21 17:03 Urine Methadone Screen Not Detected (NotDetected) 11/02/21 17:03 Ur Propoxyphene Screen Not Detected (NotDetected) 11/02/21 17:03 Acetaminophen <10.0 ug/mL 11/02/21 21:00 Ur Barbiturates Screen Not Detected (NotDetected) 11/02/21 17:03 U Tricyclic Antidepress Not Detected (NotDetected) 11/02/21 17:03 Ur Phencyclidine Scrn Not Detected (NotDetected) 11/02/21 17:03 Ur Amphetamines Screen Not Detected (NotDetected) 11/02/21 17:03 U Methamphetamines Scrn Not Detected (NotDetected) 11/02/21 17:03 U Benzodiazepines Scrn Detected (NotDetected) H 11/02/21 17:03 Urine Cocaine Screen Not Detected (NotDetected) 11/02/21 17:03 U Marijuana (THC) Screen Not Detected (NotDetected) 11/02/21 17:03 Serum Alcohol <10 mg/dL 11/02/21 17:30 Coronavirus (PCR) Not Detected (Not Detectd) 11/03/21 04:54 11/03/21 11:14 IDENTIFYING DATA: Patient is a 61-year-old female who was admitted involuntarily after a overdose at home on her medications. HPI: Patient presented to the hospital yesterday after a overdose on her medications. As per ER note patient was a poor historian however does endorse depression and suicidal thoughts. Patient was petitioned by police who states that patient had admitted to overdosing on her medications in a attempt to kill herself. Patient also states that patient left a suicide note dated 10/30. Patient's urine drug screen was positive for benzodiazepines. Her blood alcohol level was negative. Patient's Tylenol and salicylate levels were negative. Patient was admitted involuntarily to the mental health unit and song writer attempted to speak with patient today. Patient was sleeping however awoke briefly and acknowledges song writer attempted to go back to sleep. She was very uncooperative and only answered some questions. She denied overdosing on her medications and denied depression. She had poor concentration and appeared to be fairly lethargic. She did not offer any other complaints. She states that she did not want to talk at this time. Patient denies any suicidal or homicidal ideations intent or plan. At this time patient denies any auditory or visual hallucinations. Patient did not answer song writer with regards to her substance use. The rest of patient's history was difficult to obtain due to patient's sedation and also her lack of cooperation. PAST PSYCHIATRIC HISTORY: Patient has a history of depression and anxiety. Patient was previously on Cymbalta and Valium before coming into the hospital. Rest of psychiatric history was unable to be gathered due to patient's level of sedation. Past Medical History: Hyperlipidemia, Thyroid Disorder Additional Past Medical History / Comment(s): CHRONIC PELVIC PAIN -HX OF SURGERY WITH TUMOR REMOVED., HAS INTERSTIM IMPLANTED DEVICE IN LEFT BUTTOCKS FOR HER PELVIC PAIN., UNABLE TO WALK LONG DISTANCES., STATES HAVING DIARRHEA. ALLERGIES: as per EMR CHEMICAL DEPENDENCY HISTORY: Unable to obtain FAMILY PSYCHIATRIC/SUBSTANCE USE HISTORY: Unable to obtain SOCIAL HISTORY: Unable to obtain MENTAL STATUS EXAM: General Appearance: Patient appears to be elderly, somnolent, stated age is un cooperative and guarded. Patient appears to have poor hygiene and grooming. Behavior: Patient is guarded. Speech: Patient's speech is mumbling, concrete. Mood/Affect: unable to assess], affect is constricted. Suicidality/Homicidality: Patient denies having any homicidal ideation intent or plan. Denies any suicidal ideations intent or plan Perceptions: Patient denies any visual hallucinations and denies any auditory hallucinations Though content/process: concrete, poverty of content. evasive/gaurded Memory and concentration: unable to assess Judgment and insight: poor/impulsive STRENGTHS/WEAKNESSES: strength is that patient is resilient. Weakness is that patient has poor judgment and is impulsive INTELLECT: average IMPRESSIONS: Depressive disorder NOS overdose of medications nicotine dependence PLAN: -Patient is admitted under involuntary status to MHU for stabilization of psychiatric symptoms and safety. Patient has not signed adult voluntary form and medication consent and is placed in patient's chart. A second certification was completed and along with petition will be filed for court. -Medications : Will start patient on effexor xr 37.5 mg daily for mood/anxiety. melatonin 3 qhs for sleep -Ativan and Haldol PRN for agitation/aggression -will monitor for potential Benzodiazipine withdrawal. vitals stable at this time. -Patient was informed of the risks, benefits and side effects of the medication, she did not sign med consent form. -Internal Medicine consult to perform medical evaluation and physical. -NRT - nicotine patch -SW on board for discharge planning. Encourage patient to participate in groups to work on coping skills. Will await deferral and court date.
--- NOTE | 2021-11-03 13:09 | P.MDCNMH ---
History of Present Illness H&P Date: 11/03/21 Chief Complaint: overdose 61-year-old female who was admitted involuntarily after a overdose at home on her medications in an attempt to kill herself. As per ER note patient was a poor historian however does endorse depression and suicidal thoughts. Patient was petitioned by police who states that patient had admitted to overdosing on her medications in a attempt to kill herself. Patient also states that patient left a suicide note dated 10/30. Her labs in the emergency department were unremarkable, however her urine drug screen was positive for benzodiazepines. When I attempted to wake her up in order to obtain history she was very lethargic and she was drifting back to sleep consistently. She was moaning and mumbling the whole times. Review of Systems Unobtainable secondary to the lethargy Past Medical History Past Medical History: Hyperlipidemia, Thyroid Disorder Additional Past Medical History / Comment(s): CHRONIC PELVIC PAIN -HX OF SURGERY WITH TUMOR REMOVED., HAS INTERSTIM IMPLANTED DEVICE IN LEFT BUTTOCKS FOR HER PELVIC PAIN., UNABLE TO WALK LONG DISTANCES., STATES HAVING DIARRHEA. History of Any Multi-Drug Resistant Organisms: None Reported Past Surgical History: Appendectomy, Hernia Repair, Hysterectomy, Tonsillectomy Additional Past Surgical History / Comment(s): pelvic surgery 2009, INTERSTIM IMPLANTED DEVICE LEFT BUTTOCKS([employer]) Past Anesthesia/Blood Transfusion Reactions: No Reported Reaction Past Psychological History: Anxiety, Depression Past Alcohol Use History: None Reported Past Drug Use History: None Reported - Past Family History Mother Family Medical History: No Reported History Medications and Allergies Home Medications Medication Instructions Recorded Confirmed Type Gabapentin [Neurontin] 800 mg PO QID 04/21/16 11/03/21 History Levothyroxine Sodium [Synthroid] 100 mcg PO DAILY 04/21/16 11/03/21 History fentaNYL 100MCG/HR PATCH 1 patch TRANSDERM Q48H 04/21/16 11/03/21 History [Duragesic 100MCG/HR] oxyCODONE-APAP 10-325MG [Percocet 2 tab PO Q8H 04/21/16 11/03/21 History 10-325 mg] DULoxetine HCL [Cymbalta] 60 mg PO BID 09/02/17 11/03/21 History diazePAM [Valium] 10 mg PO BID 09/02/17 11/03/21 History Diphenoxylate HCl/Atropine 1 tab PO Q4H PRN 11/03/21 11/03/21 History [Lomotil 2.5-0.025 mg Tablet] Furosemide [Lasix] 40 mg PO DAILY 11/03/21 11/03/21 History Pravastatin Sodium [Pravachol] 40 mg PO HS 11/03/21 11/03/21 History Allergies Allergy/AdvReac Type Severity Reaction Status Date / Time Sulfa (Sulfonamide Allergy Unknown Verified 11/02/21 19:24 Antibiotics) Physical Exam Vitals: Vital Signs Temp Pulse Pulse Resp BP BP Pulse Ox 11/03/21 09:40 97.9 F 76 18 160/77 11/03/21 01:08 75 12 137/64 99 11/03/21 00:14 73 12 120/64 94 L 11/02/21 21:04 73 20 134/67 94 L 11/02/21 18:44 69 12 146/69 99 11/02/21 17:38 69 12 153/78 99 11/02/21 16:36 97.3 F L 78 14 145/83 91 L Intake and Output 11/02/21 11/03/21 11/03/21 22:59 06:59 14:59 Other: Weight 86.183 kg Constitutional: No acute distress Eyes:Anicteric sclerae, moist conjunctiva, no lid-lag, PERRLA, ENMT: Oropharynx clear, no erythema, exudates Neck: Supple, FROM, no masses, or JVD, No carotid bruits, No thyromegaly Lungs: Clear to auscultation, Clear to percussion, Normal respiratory effort, no accessory muscle use Cardiovascular: Heart regular in rate and rhythm, No murmurs, gallops, or rubs, No peripheral edema Abdominal: Soft, Nontender, no guarding, rebound or rigidity, Normoactive bowel sounds, No hepatomegaly, No splenomegaly, No palpable mass Skin: Normal temperature, tone, texture, turgor, no induration, No subcutaneous nodules, No rash, lesions, No ulcers Extremities: No digital cyanosis, No clubbing, Pedal pulses intact and symmetrical, Radial pulses intact and symmetrical, No calf tenderness Neuro: Lethargic, general weakness Cranial Nerve Examination - Cranial Nerves Cranial Nerve II- Optic: Intact Cranial Nerve III- Oculomotor: Intact Cranial Nerve IV- Trochlear: Intact Cranial Nerve V- Trigeminal: Intact Cranial Nerve - Abducens: Intact Cranial Nerve VII- Facial: Intact Cranial Nerve VIII- Auditory: Intact Cranial Nerve IX- Glossopharyngeal: Intact Cranial Nerve X- Vagus: Intact Cranial Nerve XI- Accessory: Intact Cranial Nerve XII- Hypoglossal: Intact Results CBC & Chem 7: 11/02/21 17:30 08 17:30 Labs: Abnormal Lab Results - Last 24 Hours (Table) 11/02/21 11/02/21 11/02/21 Range/Units 17:03 17:30 17:30 Hct 48.2 H (34.0-46.0) % Plt Count 102 L (150-450) k/uL Chloride 97 L (98-107) mmol/L Carbon Dioxide 33 H (22-30) mmol/L Creatinine 0.47 L (0.52-1.04) mg/dL Creatine Kinase 302 H (30-135) U/L U Benzodiazepines Scrn Detected H (NotDetected) Assessment and Plan Plan: Drug overdose Suicide attempt Per your psychiatric management Health maintenance Check CBC, CMP, within normal limits Check TSH, A1c, lipid profile Essential hypertension Hyperlipidemia Hypothyroidism Stable Resume meds Thank you for the consultation, please call with any questions.
[2021-11-03] MEDS: ACETAMINOPHEN TAB 325 MG TAB PO PRN (16:36)
[2021-11-03] MEDS: PRAVASTATIN SODIUM 40 MG TAB PO SCH (21:04)
[2021-11-03] MEDS: MELATONIN 3 MG TABLET PO SCH (21:05)
[2021-11-03] MEDS: GABAPENTIN 400 MG CAP PO SCH (21:05)
[2021-11-04] MEDS: ACETAMINOPHEN TAB 325 MG TAB PO PRN ×2 (04:56→10:05)
[2021-11-04] MEDS ORDERED: LORazepam 0.5 MG TAB PO PRN (09:55)
--- NOTE | 2021-11-04 10:00 | P.PN ---
Progress Note - Text Progress Note Date: 11/04/21 Interval History: Patient was seen lying in her bed this morning and was agreeable to speak a wr iter. She continues to appear to be lethargic however this improved markedly since yesterday. Patient only responded to some questions and denied suicidal intentions with her overdose. She states that she is not feeling depressed. She claims that she is in a significant amount of pain however fell asleep several times during the interview and needed to be awoken again. She is denying any anxiety. She states that she is able to sleep fairly last night. At this time patient denies any suicidal or homical ideations, intent or plan. Patient denies any auditory, visual hallucinations and denies any paranoia or delusions. She has minimal insight and judgment is poor. Patient denies any side effects from the medications and has been compliant with meds. Mental Status Exam: General Appearance: Patient appears to be elderly, lethargic, stated age is uncooperative and guarded, mildly improving. Patient appears to have poor hygiene and grooming. Behavior: Patient is guarded. Laying in bed. Lethargic. Speech: Patient's speech is mumbling, concrete. Mood/Affect: She claims that her mood is "fine", affect is constricted and incongruent. Suicidality/Homicidality: Patient denies having any homicidal ideation intent or plan. Denies any suicidal ideations intent or plan Perceptions: Patient denies any visual hallucinations and denies any auditory hallucinations Though content/process: concrete, poverty of content. evasive/gaurded Memory and concentration: unable to assess Judgment and insight: poor/impulsive IMPRESSIONS: Depressive disorder unspecified Overdose of medications nicotine dependence Plan: -Patient continues to meet criteria for inpatient psychiatric admission for symptom stabilization and safety. Patient has not signed [adult voluntary form and] [medication consent] and was placed in patient's chart. -Medications: [] continue with Effexor XR 37.5 mg daily for anxiety/mood. Melatonin 3 mg daily at bedtime for sleep. -When necessary Ativan and Haldol for agitation/aggression. -NRT - [nicotine patch] -SW on board for discharge planning. Encouraged the patient to participate in milieu. Currently awaiting deferral with health care attorney and court date.
[2021-11-04] MEDS: LEVOTHYROXINE 100 MCG TAB PO SCH (10:02)
[2021-11-04] MEDS: VENLAFAXINE HCL ER 37.5 MG CAP PO SCH (10:04)
[2021-11-04] MEDS: GABAPENTIN 400 MG CAP PO SCH ×3 (10:04→21:09)
[2021-11-04] MEDS: FUROSEMIDE 40 MG TAB PO SCH (10:05)
[2021-11-04] MEDS: NICOTINE 14MG/24HR PATCH TRANSDERM SCH (10:06)
[2021-11-04] MEDS: MELATONIN 3 MG TABLET PO SCH (21:09)
[2021-11-04] MEDS: PRAVASTATIN SODIUM 40 MG TAB PO SCH (21:09)
[2021-11-05] MEDS: LEVOTHYROXINE 100 MCG TAB PO SCH (06:50)
[2021-11-05] MEDS: NICOTINE 14MG/24HR PATCH TRANSDERM SCH (08:55)
[2021-11-05] MEDS: VENLAFAXINE HCL ER 37.5 MG CAP PO SCH (08:56)
[2021-11-05] MEDS: FUROSEMIDE 40 MG TAB PO SCH (08:56)
[2021-11-05] MEDS: GABAPENTIN 400 MG CAP PO SCH (08:56)
--- NOTE | 2021-11-05 09:25 | P.PN ---
Progress Note - Text Progress Note Date: 11/05/21 A- team: Indication: Altered mental status Arrived on Scene to find: Patient is a 61-year-old female with a past medical history of hypertension, hyperlipidemia, hypothyroidism, chronic pain, anxiety, and depression. She initially presented to the hospital on 11/02/21 secondary to concerns of overdose on unknown amount of medication. Patient reportedly had empty Cymbalta bottle lying next to her but also had access to an array of different medications including opioids and benzodiazepines. This overdose was believed to be intentional as there was a reported suicide note with the patient. Patient was admitted to inpatient psychiatric unit secondary to this suicidal attempt via intentional overdose. Received page reporting patient was lethargic and not responsive. It was reported that patient was admitted to inpatient mental health unit on 11/02/21 and was lethargic and non responsive and this was initially thought to be secondary to overdose and lasting effects of medications. However, pt reportedly had no improvement and today remained significally lethargic, slurred speech, and not following commands and nursing staff reported they became concerned that this was no longer due to the effects of medications pt initially took to overdose and needed to be evaluated. Upon arrival to mental health unit, patient was sitting in her room in wheelchair. She was awake and alert to self only, her speech was slurred and she was drooling from the right corner of her mouth. Her face was symmetrical with no facial droop noted. She was only able to follow limited commands, but appeared to have weakness in her right arm with droop. Bilateral lower extremities equal strength with no noted weakness. Left pupil slightly irregular when compared to right, but responsive to light bilaterally and EOMs appeared to be intact but patient was only following limited commands. Vital signs as follows temp 98.1, BP 179/104, heart rate 124, respiratory rate 18, and SpO2 of 94% on room air. Nursing staff at bedside reports patient's mentation has been unchanged 3 days. However due to concerns of the potential of patient experiencing other neurological condition, I activated an A-team at this time. Physical examination: Patient seen and examined at bedside. General: non toxic, no distress, appears at stated age Derm: warm, dry Head: atraumatic, normocephalic, symmetric Eyes: EOMI, no lid lag, anicteric sclera Mouth: no lip lesion, mucus membranes moist Cardiovascular: S1S2 reg, systolic murmur, positive posterior tibial pulses bilaterally, tachycardia Lungs: CTA bilateral, no rhonchi, no rales , no accessory muscle use Abdominal: soft, nontender to palpation, no guarding, no appreciable organomeg nino Ext: no gross muscle atrophy, no edema, no contractures. Movement and sensation intact however patient appears to have right arm weakness. Neuro/psych: Speech slurred. Patient lethargic following only limited commands. Assessment: Acute encephalopathy, unclear etiology. Rule out CVA. Sinus tachycardia Hypertensive urgency Plan: -A-team activated and patient to be transferred to inpatient medical unit for neurological workup. -CBC, CMP, ammonia, TSH, and free T4 to be drawn. -Stat EKG. -CT head. (CT head negative for acute intracranial process) -Allow for permissive hypertension until a CVA can be ruled out -Neuro checks -Telemetry monitoring -Close monitoring of vital signs. -Patient started on IV fluid hydration. Disposition: -Patient transferred from inpatient mental health unit to inpatient medical unit for neurological workup. Notified: -Neurology notified of consult,recommended ordering MRI and EEG. A Total of 51 minutes of critical care time was spent on the complex care of this patient. I reviewed the documentation as provided by the CHLOE above, who is the original author of this note. I agree with the documented assessment and plan, with the following changes: none
[2021-11-05 09:26] VITALS: RESP 16
[2021-11-05 09:41] LABS: Glucose,Whole Blood 170 mg/dL (70-110)
--- NOTE | 2021-11-05 10:25 | CT ---
EXAMINATION TYPE: CT brain wo con DATE OF EXAM: 11/05/2021 COMPARISON: None HISTORY: 61-year-old female Left sided weakness and altered mental status. Concern for CVA. TECHNIQUE: Examination was done in axial plane without intravenous contrast. Coronal and sagittal r econstructions performed. CT DLP: 2333 mGycm Automated exposure control for dose reduction was used. FINDINGS: There is no evidence of acute intracranial hemorrhage, acute ischemic changes, mass, mass-effect, or extra-axial fluid collection. There is no effacement of cerebral sulci or basal subarachnoid cister ns. There is no hydrocephalus. There is no midline shift. Gifford-white matter distinction is preserv ed. Slightly bright intracranial circulation may relate to dehydration and can be correlated clinically. Rightward nasal septal deviation. Paranasal sinuses and mastoid air cells are pneumatized. Orbits and globes are intact. IMPRESSION: No acute intracranial abnormality seen. Slightly dense generalized intracranial circulation; query de hydration. If symptoms persist, consider MRI.
[2021-11-05 10:26] LABS: Basophils % (A) 0 %; Eosinophils % (A) 0 %; HGB 18.7 gm/dL (11.4-16.0); Lymphocytes # (A) 1.4 k/uL (1.0-4.8); Lymphocytes % (A) 9 %; MCH 31.6 pg (25.0-35.0); MCHC 32.8 g/dL (31.0-37.0); MCV 96.3 fL (80.0-100.0); Mean Platelet Volume 8.1; Monocytes # (A) 0.8 k/uL (0-1.0); Monocytes % (A) 5 %; Neutrophils # (A) 13.2 k/uL (1.3-7.7); Neutrophils % (A) 85 %; RBC 5.92 m/uL (3.80-5.40); RDW 13.7 % (11.5-15.5); WBC 15.6 k/uL (3.8-10.6)
[2021-11-05 10:32] LABS: ALT 16 U/L (4-34); AST 25 U/L (14-36); African American GFR (CKD) >90 (>60 ml/min/1.73 sqM); Albumin 5.4 g/dL (3.5-5.0); Alkaline Phosphatase 119 U/L (38-126); Anion Gap 24 mmol/L; Blood Urea Nitrogen 24 mg/dL (7-17); Calcium 11.1 mg/dL (8.4-10.2); Carbon Dioxide 20 mmol/L (22-30); Chloride 99 mmol/L (98-107); Glucose 173 mg/dL (74-99); Magnesium 1.9 mg/dL (1.6-2.3); Non-African American GFR(CKD) >90 (>60 ml/min/1.73 sqM); Potassium 3.2 mmol/L (3.5-5.1); Sodium 143 mmol/L (137-145); Total Bilirubin 0.9 mg/dL (0.2-1.3); Total Protein 8.4 g/dL (6.3-8.2)
[2021-11-05 10:37] LABS: Platelet Count 372 k/uL (150-450)
--- NOTE | 2021-11-05 10:41 | P.DS ---
Providers Date of admission: 11/03/21 06:47 Expected date of discharge: 11/05/21 Attending physician: George Ceja MD Consults: 11/03/21 07:02 Consult Physician Routine Consulting Provider: Skylar Ga Consult Reason/Comments: H&P Do you want consulting provider notified?: Yes Primary care physician: Stated None - Discharge Diagnosis(es) (1) Depressive disorder Current Visit: Yes Status: Acute Priority: High (2) Overdose of medication Current Visit: Yes Status: Acute Priority: High (3) Nicotine dependence Current Visit: Yes Status: Acute Priority: Low Hospital Course: Admission HPI: Admission note was completed by [fiction and nonfiction writer prose] "Patient is a 61-year-old female who was admitted involuntarily after a overdose at home on her medications. Patient presented to the hospital yesterday after a overdose on her medications. As per ER note patient was a poor historian however does endorse depression and suicidal thoughts. Patient was petitioned by police who states that patient had admitted to overdosing on her medications in a attempt to kill herself. Patient also states that patient left a suicide note dated 10/30. Patient's urine drug screen was positive for benzodiazepines. Her blood alcohol level was negative. Patient's Tylenol and salicylate levels were negative. Patient was admitted involuntarily to the mental health unit and fiction and nonfiction writer prose attempted to speak with patient today. Patient was sleeping however awoke briefly and acknowledges fiction and nonfiction writer prose attempted to go back to sleep. She was very uncooperative and only answered some questions. She denied overdosing on her medications and denied depression. She had poor concentration and appeared to be fairly lethargic. She did not offer any other complaints. She states that she did not want to talk at this time. Patient denies any suicidal or homicidal ideations intent or plan. At this time patient denies any auditory or visual hallucinations. Patient did not answer fiction and nonfiction writer prose with regards to her substance use. The rest of patient's history was difficult to obtain due to patient's sylvester tion and also her lack of cooperation." Hospital course: Upon admission to the unit patient was [admitted involuntarily on a petition and certificate and a second certificate was completed and faxed with the courts]. Patient's court date is set for 11/11/2021. Patient mainly isolated in her room throughout her entire hospitalization. Patient overdose apparently on her medications and possibly benzodiazepines. Patient was placed on ciwa protocol to monitor for benzodiazepine withdrawal. Patient also was previously on opioids and fentanyl. Patient was mainly difficult to engage with an co nversation during her hospitalization. This morning patient had apparent change in her mental status and differences in pupil size is in both her eyes and also had elevation in heart rate and blood pressure and an A team was called. Medicine evaluated the patient and decided to transfer patient off the psychiatric unit to the medical floors to evaluate for stroke. Psychiatry will continue to follow along. Mental status exam: was unable to complete mse on patient this morning. Impression: Depressive disorder unspecified Overdose on medications [Nicotine dependence] Plan: -Patient will be transferred to the medical floors due to her acute decompensation, elevated blood pressure tachycardia and also change in mental status to rule out a stroke. ok to resume medications and add on librium 20 mg tid for potential bzd withdrawal and ciwa protocol aswell. psychiatry will continue to follow along. Patient Condition at Discharge: Stable Plan - Discharge Summary New Discharge Prescriptions: No Action Levothyroxine Sodium [Synthroid] 100 mcg PO DAILY oxyCODONE-APAP 10-325MG [Percocet 10-325 mg] 2 tab PO Q8H fentaNYL 100MCG/HR PATCH [Duragesic 100MCG/HR] 1 patch TRANSDERM Q48H Gabapentin [Neurontin] 800 mg PO QID DULoxetine HCL [Cymbalta] 60 mg PO BID diazePAM [Valium] 10 mg PO BID Diphenoxylate HCl/Atropine [Lomotil 2.5-0.025 mg Tablet] 1 tab PO Q4H PRN PRN Reason: Diarrhea Pravastatin Sodium [Pravachol] 40 mg PO HS Furosemide [Lasix] 40 mg PO DAILY Discharge Medication List Gabapentin [Neurontin] 800 mg PO QID 04/21/16 [History] Levothyroxine Sodium [Synthroid] 100 mcg PO DAILY 04/21/16 [History] fentaNYL 100MCG/HR PATCH [Duragesic 100MCG/HR] 1 patch TRANSDERM Q48H 04/21/16 [History] oxyCODONE-APAP 10-325MG [Percocet 10-325 mg] 2 tab PO Q8H 04/21/16 [History] DULoxetine HCL [Cymbalta] 60 mg PO BID 09/02/17 [History] diazePAM [Valium] 10 mg PO BID 09/02/17 [History] Diphenoxylate HCl/Atropine [Lomotil 2.5-0.025 mg Tablet] 1 tab PO Q4H PRN 11/03/21 [History] Furosemide [Lasix] 40 mg PO DAILY 11/03/21 [History] Pravastatin Sodium [Pravachol] 40 mg PO HS 11/03/21 [History] Follow up Appointment(s)/Referral(s): None,Stated [Primary Care Provider] - 1-2 days
[2021-11-05 11:55] LABS: T4, Free (Free Thyroxine) 1.97 ng/dL (0.78-2.19)
[2021-11-05] MEDS ORDERED: LORazepam 1 MG TAB PO STA (14:26)
[2021-11-05 14:42] VITALS: BP 178/90; PULSE 112; TEMP 98
== END 2021-11-05 16:17 | disposition short-term general hospital (02) | DRG 881 ==
LOC: EC 16:35 → 3MHU 11-03 06:47
PROVIDERS: ADMIT Psychiatry & Neurology Psychiatry; ATTEND Psychiatry & Neurology Psychiatry
DX: F32.A Depression, unspecified (principal); I63.9 Cerebral infarction, unspecified; G93.40 Encephalopathy, unspecified; E03.9 Hypothyroidism, unspecified; T42.4X2A Poisoning by benzodiazepines, intentional self-harm, initial encounter; Z20.822 Contact with and (suspected) exposure to COVID-19; I10 Essential (primary) hypertension; I16.0 Hypertensive urgency; R10.2 Pelvic and perineal pain; G89.29 Other chronic pain; E78.5 Hyperlipidemia, unspecified; F41.9 Anxiety disorder, unspecified; R26.2 Difficulty in walking, not elsewhere classified; F17.200 Nicotine dependence, unspecified, uncomplicated; Z79.890 Hormone replacement therapy; Z79.891 Long term (current) use of opiate analgesic; Z79.899 Other long term (current) drug therapy; Z96.82 Presence of neurostimulator; Z90.710 Acquired absence of both cervix and uterus; Z87.19 Personal history of other diseases of the digestive system; Z88.2 Allergy status to sulfonamides; Y92.009 Unspecified place in unspecified non-institutional (private) residence as the place of occurrence of the external cause
CPT/HCPCS: 36415; 70450; 71045; 80053; 80143; 80179; 80306; 80320; 82140; 82550; 83036; 83735; 84439; 84443; 85025; 85610; 85730; 87635; 93005; 99285

== ENCOUNTER 2021-11-20 13:45 | Emergency (ER) | payer MEDICARE, BC ==
[2021-11-20 13:51] VITALS: BP 108/81; PULSE 86; RESP 20; TEMP 98.2
[2021-11-20] MEDS ORDERED: oxyCODONE-APAP 10-325MG 1 EACH TAB PO STA (16:37)
--- NOTE | 2021-11-20 16:46 | ED ---
Psych HPI - General Chief Complaint: Psychiatric Symptoms Stated Complaint: Mental health eval Time Seen by Provider: 11/20/21 15:24 Source: patient Mode of arrival: ambulatory - History of Present Illness Initial Comments: This patient is a 61-year-old woman who presents with complaint that she has been considering suicide. She states that she is having chronic pelvic floor p ain issues. She has had pain for 16 years. She states that her primary physician who had been providing her chronic pain medication recently stopped practicing. She states that her pain is been uncontrolled. She states that the pain was so bad last night that she had considered shooting herself. She did maintain a gun in the house but states that last night she persuaded her actmkkt-cu-pil to take the gun. MD Complaint: suicidal ideation -: days(s) Associated Psychiatric Symptoms: depression, suicidal ideation History of same: Yes Quality: constant Improves With: none Worsens With: none Context: significant life stressor - Related Data Home Medications Medication Instructions Recorded Confirmed Levothyroxine Sodium [Synthroid] 100 mcg PO DAILY 04/21/16 11/05/21 oxyCODONE-APAP 10-325MG [Percocet 2 tab PO Q8H 04/21/16 11/05/21 10-325 mg] DULoxetine HCL [Cymbalta] 60 mg PO BID 09/02/17 11/05/21 Pravastatin Sodium [Pravachol] 40 mg PO HS 11/03/21 11/05/21 Previous Rx's Medication Instructions Recorded Cyanocobalamin [Vitamin B-12] 1,000 mcg PO DAILY tab 11/08/21 DULoxetine HCL [Cymbalta] 60 mg PO BID 15 Days #30 cap 11/09/21 Lisinopril-Hctz 20-25 mg 1 tab PO DAILY 30 Days #30 tab 11/09/21 [Zestoretic 20-25] Nitrofurantoin Monohyd/M-Cryst 100 mg PO Q12HR 3 Days #6 cap 11/09/21 [Macrobid] Allergies Allergy/AdvReac Type Severity Reaction Status Date / Time Sulfa (Sulfonamide Allergy Unknown Verified 11/20/21 13:50 Antibiotics) Review of Systems ROS Statement: Those systems with pertinent positive or pertinent negative responses have been documented in the HPI. ROS Other: All systems not noted in ROS Statement are negative. Constitutional: Denies: fever, chills Respiratory: Denies: cough, dyspnea Cardiovascular: Denies: chest pain, palpitations Gastrointestinal: Denies: abdominal pain, vomiting Genitourinary: Denies: dysuria Musculoskeletal: Reports: back pain Skin: Denies: rash Neurological: Denies: headache, weakness, numbness Psychiatric: Reports: suicidal thoughts Past Medical History Past Medical History: Hyperlipidemia, Thyroid Disorder Additional Past Medical History / Comment(s): CHRONIC PELVIC PAIN -HX OF SURGERY WITH TUMOR REMOVED., HAS INTERSTIM IMPLANTED DEVICE IN LEFT BUTTOCKS FOR HER PELVIC PAIN., UNABLE TO WALK LONG DISTANCES., STATES HAVING DIARRHEA. History of Any Multi-Drug Resistant Organisms: None Reported Past Surgical History: Appendectomy, Hernia Repair, Hysterectomy, Tonsillectomy Additional Past Surgical History / Comment(s): pelvic surgery 2009, INTERSTIM IMPLANTED DEVICE LEFT BUTTOCKS([employer]) Past Anesthesia/Blood Transfusion Reactions: No Reported Reaction Past Psychological History: Anxiety, Depression Smoking Status: Current every day smoker Past Alcohol Use History: None Reported Past Drug Use History: None Reported - Past Family History Mother Family Medical History: No Reported History General Exam Limitations: no limitations General appearance: alert, in no apparent distress Head exam: Present: atraumatic, normocephalic Eye exam: Present: normal appearance Respiratory exam: Present: normal lung sounds bilaterally. Absent: respiratory distress, wheezes, rales, rhonchi, stridor Cardiovascular Exam: Present: regular rate, normal rhythm, normal heart sounds. Absent: systolic murmur, diastolic murmur, rubs, gallop GI/Abdominal exam: Present: soft. Absent: distended, tenderness, guarding Extremities exam: Present: normal inspection, normal capillary refill Back exam: Present: normal inspection. Absent: CVA tenderness (R), CVA tenderness (L) Neurological exam: Present: alert Psychiatric exam: Present: depressed, suicidal ideation. Absent: agitated, anxious, manic, homicidal ideation Skin exam: Present: warm, dry, intact, normal color. Absent: rash Course Vital Signs 11/20/21 13:48 Temperature 98.2 F Pulse Rate 86 Respiratory 20 Rate Blood Pressure 108/81 O2 Sat by Pulse 99 Oximetry Disposition Clinical Impression: Mood disorder Disposition: HOME SELF-CARE Condition: Good Instructions (If sedation given, give patient instructions): Mood Disorders (ED) Is patient prescribed a controlled substance at d/c from ED?: No Referrals: None,Stated [Primary Care Provider] - 1-2 days
== END 2021-11-20 19:11 | disposition home or self-care (01) ==
LOC: EC 13:45
DX: F39 Unspecified mood [affective] disorder (principal); R45.851 Suicidal ideations; F17.200 Nicotine dependence, unspecified, uncomplicated; E78.5 Hyperlipidemia, unspecified; E07.9 Disorder of thyroid, unspecified; Z88.2 Allergy status to sulfonamides; Z79.899 Other long term (current) drug therapy; Z79.890 Hormone replacement therapy
CPT/HCPCS: 82075; 99284